=== PATIENT | male | born 1965 | race Caucasian/White ===

== ENCOUNTER 2016-09-03 11:25 | Emergency (ER) | payer MEDICARE ==
[2016-09-03] MEDS ORDERED: Ibuprofen 600 MG TAB ONE (13:14)
== END 2016-09-03 13:29 | disposition home or self-care (01) ==
LOC: ER 11:25
DX: S22.31XA Fracture of one rib, right side, initial encounter for closed fracture (principal); W01.0XXA Fall on same level from slipping, tripping and stumbling without subsequent striking against object, initial encounter; Y92.009 Unspecified place in unspecified non-institutional (private) residence as the place of occurrence of the external cause
CPT/HCPCS: 94799